=== PATIENT | female | born 1980 | race Caucasian/White ===

== ENCOUNTER 2018-06-27 07:34 | Emergency (ER) | payer OTHER ==
[2018-06-27 07:56] VITALS: O2SAT 98
[2018-06-27] MEDS ORDERED: TORAdol 30 mg Injection IM ONE (08:05)
[2018-06-27] MEDS ORDERED: TORAdol 30 mg Injection ONE (08:08)
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
[2018-06-27 10:53] VITALS: BP 122/50; PULSE 58
== END 2018-06-27 10:52 | disposition home or self-care (01) ==
LOC: ED 07:34
DX: M54.5 Low back pain (principal); M53.3 Sacrococcygeal disorders, not elsewhere classified; V43.53XA Car driver injured in collision with pick-up truck in traffic accident, initial encounter; Y92.410 Unspecified street and highway as the place of occurrence of the external cause
CPT/HCPCS: 72110; 96372; 99285; J1885

== ENCOUNTER 2019-04-13 11:57 | Emergency (ER) | payer OTHER ==
[2019-04-13] MEDS ORDERED: Sodium Chloride 0.9% 1000 ML 1,000 ML IV STA (12:25)
[2019-04-13] MEDS ORDERED: Sodium Chloride 0.9% 1000 ML 1,000 ML ONE (12:28)
--- NOTE | 2019-04-13 12:28 | ERPHSYRPT ---
- History of Present Illness Time Seen by Provider: 04/13/19 12:12 Patient Subjective Stated Complaint: pt here for lower abd pain, nausea since 1700, also painflu urination, she thinks it has do with her IUD that is to come out this month, she started Tamiflu yesterday before pain started Triage Nursing Assessment: pt alert, resp easy, skin w/d/p, moves all ext well, abd soft Physician History: 38 years old female presented in the ER with chief complaint of lower abdominal pain more in the suprapubic and right lower quadrant area gradual onset since yesterday evening, aggravated with movements and palpation and no significant relieving factors associated with nausea but no vomiting. Patient also started prophylactic Tamiflu yesterday and is concerned about her IUD dislodgment. She is also complaining of increased burning urination with mild increased frequency but no hematuria. She did have some spotting few days ago which is improved now. Denies any fever or chills. Timing/Duration: yesterday, gradual onset, worse Activities at Onset: rest Quality: dullness, sharpness Abdominal Pain Onset Location: RLQ, suprapubic Pain Radiation: no radiation Severity of Pain-Max: mild Severity of Pain-Current: moderate Modifying Factors: Improves With: movement Associated Symptoms: nausea Previous symptoms: no prior history Allergies/Adverse Reactions: No Known Drug Allergies Allergy (Verified 04/13/19 12:02) Home Medications: Fluoxetine HCl 20 mg [Prozac 20 MG] 40 mg DAILY 04/13/19 [History] Oseltamivir 75 mg [Tamiflu 75MG Capsule] 75 mg DAILY 04/13/19 [History] Trazodone HCl [Desyrel] 100 mg DAILY 04/13/19 [History] Hx Tetanus, Diphtheria Vaccination/Date Given: No Hx Influenza Vaccination/Date Given: No Hx Pneumococcal Vaccination/Date Given: No Immunizations Up to Date: Yes - Review of Systems Constitutional: No Symptoms Eyes: No Symptoms Ears, Nose, & Throat: No Symptoms Respiratory: No Symptoms Cardiac: No Symptoms Abdominal/Gastrointestinal: Abdominal Pain Genitourinary Symptoms: Dysuria, Frequency Musculoskeletal: No Symptoms Skin: No Symptoms Neurological: No Symptoms Psychological: No Symptoms Endocrine: No Symptoms Hematologic/Lymphatic: No Symptoms Immunological/Allergic: No Symptoms - Past Medical History Pertinent Past Medical History: Yes Neurological History: No Pertinent History ENT History: Other Cardiac History: No Pertinent History Respiratory History: Asthma, Bronchitis Endocrine Medical History: No Pertinent History Musculoskeletal History: No Pertinent History GI Medical History: GERD History: No Pertinent History Psycho-Social History: Depression Female Reproductive Disorders: No Pertinent History - Past Surgical History Past Surgical History: Yes Musculoskeletal: Orthopedic Surgery Other Surgical History: right wrist, femur - Social History Smoking Status: Current every day smoker Exposure to second hand smoke: Yes Drug Use: none Patient Lives Alone: No - Female History Hx Last Menstrual Period: unsure Hx Now: No - Nursing Vital Signs Nursing Vital Signs: Initial Vital Signs Pulse Rate 89 04/13/19 12:09 Respiratory Rate 16 04/13/19 12:09 Blood Pressure 137/76 04/13/19 12:09 O2 Sat by Pulse Oximetry 97 04/13/19 12:09 Pain Scale Pain Intensity 2 - Physical Exam General Appearance: no apparent distress Eye Exam: eyes nml inspection Ears, Nose, Throat Exam: normal ENT inspection Neck Exam: normal inspection Respiratory Exam: normal breath sounds, lungs clear Cardiovascular Exam: regular rate/rhythm, normal heart sounds Gastrointestinal/Abdomen Exam: soft, tenderness (Suprapubic and right lower quadrant) Extremity Exam: normal inspection Neurologic Exam: alert, oriented x 3 Skin Exam: normal color, warm SpO2 Interpretation: normal SpO2: 97 O2 Delivery: Room Air - Course Nursing assessment & vital signs reviewed: Yes Ordered Tests: Medication Summary Discontinued Medications Generic Name Dose Route Start Last Admin Trade Name Freq PRN Reason Stop Dose Admin Sodium Chloride 1,000 mls @ 999 mls/hr 04/13/19 12:25 04/13/19 13:28 Sodium Chloride 0.9% 1000 Ml IV 04/13/19 13:25 Infused .Q1H1M STA Infusion Sodium Chloride Confirm 04/13/19 12:28 Sodium Chloride 0.9% 1000 Ml Administered 04/13/19 12:29 Dose 1,000 mls @ ud .ROUTE .STK-MED ONE Ketorolac Tromethamine 30 mg 04/13/19 12:32 04/13/19 12:34 Toradol 30 Mg Injection IV 04/13/19 12:33 30 mg STAT ONE Administration Ketorolac Tromethamine Confirm 04/13/19 12:34 Toradol 30 Mg Injection Administered 04/13/19 12:35 Dose 30 mg .ROUTE .STK-MED ONE Lab/Rad Data: Laboratory Result Diagrams 04/13/19 12:30 04/13/19 12:30 Laboratory Results 04/13/19 04/13/19 04/13/19 Range/Units 14:16 12:30 12:30 WBC (4.0-10.5) K/mm3 RBC (4.1-5.4) M/mm3 Hgb (12.0-16.0) gm/dl Hct (35-47) % MCV (78-100) fl MCH (26-32) pg MCHC (32-36) g/dl RDW (11.5-14.0) % Plt Count (150-450) K/mm3 MPV (7.5-11.0) fl Gran % (36.0-66.0) % Eos # (Auto) (0-0.5) Absolute Lymphs (auto) (1.0-4.6) Absolute Monos (auto) (0.0-1.3) Lymphocytes % (24.0-44.0) % Monocytes % (0.0-12.0) % Eosinophils % (0.00-5.0) % Basophils % (0.0-0.4) % Absolute Granulocytes (1.4-6.9) Basophils # (0-0.4) Sodium 137 (137-145) mmol/L Potassium 4.1 (3.5-5.1) mmol/L Chloride 103 (98-107) mmol/L Carbon Dioxide 25 (22-30) mmol/L Anion Gap 13.6 (5-15) MEQ/L BUN 9 (7-17) mg/dL Creatinine 0.68 (0.52-1.04) mg/dL Estimated GFR > 60.0 ML/MIN Glucose 98 (74-106) mg/dL Calcium 9.7 (8.4-10.2) mg/dL Total Bilirubin 1.00 (0.2-1.3) mg/dL AST 62 H (14-36) U/L ALT 59 H (0-35) U/L Alkaline Phosphatase 91 (38-126) U/L Serum Total Protein 7.8 (6.3-8.2) g/dL Albumin 4.6 (3.5-5.0) g/dL Lipase 122 (23-300) U/L Urine Color YELLOW (YELLOW) Urine Appearance CLEAR (CLEAR) Urine pH 6.0 (5-6) Ur Specific [place] 1.010 (1.005-1.025) Urine Protein NEGATIVE (Negative) Urine Ketones TRACE (NEGATIVE) Urine Blood NEGATIVE (0-5) Julius/ul Urine Nitrite NEGATIVE (NEGATIVE) Urine Bilirubin NEGATIVE (NEGATIVE) Urine Urobilinogen NEGATIVE (0-1) mg/dL Ur Leukocyte Esterase NEGATIVE (NEGATIVE) Urine WBC (Auto) NONE (0-5) /HPF Urine RBC (Auto) NONE (0-2) /HPF U Epithel Cells (Auto) NONE (FEW) /HPF Urine Bacteria (Auto) NONE (NEGATIVE) /HPF Urine Culture Reflexed NO (NO) Urine Glucose NEGATIVE (NEGATIVE) mg/dL Urine HCG, Qual NEGATIVE (Negative) 04/13/19 Range/Units 12:30 WBC 12.5 H (4.0-10.5) K/mm3 RBC 4.24 (4.1-5.4) M/mm3 Hgb 12.7 (12.0-16.0) gm/dl Hct 38.3 (35-47) % MCV 90.3 (78-100) fl MCH 30.0 (26-32) pg MCHC 33.2 (32-36) g/dl RDW 12.3 (11.5-14.0) % Plt Count 232 (150-450) K/mm3 MPV 11.2 H (7.5-11.0) fl Gran % 79.6 H (36.0-66.0) % Eos # (Auto) 0.01 (0-0.5) Absolute Lymphs (auto) 1.57 (1.0-4.6) Absolute Monos (auto) 0.94 (0.0-1.3) Lymphocytes % 12.6 L (24.0-44.0) % Monocytes % 7.5 (0.0-12.0) % Eosinophils % 0.1 (0.00-5.0) % Basophils % 0.2 (0.0-0.4) % Absolute Granulocytes 9.93 H (1.4-6.9) Basophils # 0.03 (0-0.4) Sodium (137-145) mmol/L Potassium (3.5-5.1) mmol/L Chloride (98-107) mmol/L Carbon Dioxide (22-30) mmol/L Anion Gap (5-15) MEQ/L BUN (7-17) mg/dL Creatinine (0.52-1.04) mg/dL Estimated GFR ML/MIN Glucose (74-106) mg/dL Calcium (8.4-10.2) mg/dL Total Bilirubin (0.2-1.3) mg/dL AST (14-36) U/L ALT (0-35) U/L Alkaline Phosphatase (38-126) U/L Serum Total Protein (6.3-8.2) g/dL Albumin (3.5-5.0) g/dL Lipase (23-300) U/L Urine Color (YELLOW) Urine Appearance (CLEAR) Urine pH (5-6) Ur Specific [place] (1.005-1.025) Urine Protein (Negative) Urine Ketones (NEGATIVE) Urine Blood (0-5) Julius/ul Urine Nitrite (NEGATIVE) Urine Bilirubin (NEGATIVE) Urine Urobilinogen (0-1) mg/dL Ur Leukocyte Esterase (NEGATIVE) Urine WBC (Auto) (0-5) /HPF Urine RBC (Auto) (0-2) /HPF U Epithel Cells (Auto) (FEW) /HPF Urine Bacteria (Auto) (NEGATIVE) /HPF Urine Culture Reflexed (NO) Urine Glucose (NEGATIVE) mg/dL Urine HCG, Qual (Negative) - Progress Progress: improved, re-examined Counseled pt/family regarding: lab results, diagnosis, need for follow-up, rad results - Departure Departure Disposition: Home Clinical Impression: Ovarian cyst rupture, Lower abdominal pain Condition: Stable Critical Care Time: No Referrals: LULU PLATA [Primary Care Provider] - Follow Up with PCP (follow up for re evaluation in 1-day) Instructions: Acute Abdomen (Belly Pain), Adult (DC) Additional Instructions: Take Tylenol/ibuprofen as needed. Follow-up with primary care and your [employer] for reevaluation in the morning. Return to ER for worsening pain, vomiting, fever chills etc. Prescriptions: Ibuprofen 600 mg PO Q6HPRN PRN 10 Days #20 tablet PRN Reason: Pain
[2019-04-13] MEDS ORDERED: TORAdol 30 mg Injection IV ONE (12:32)
[2019-04-13] MEDS ORDERED: TORAdol 30 mg Injection ONE (12:34)
[2019-04-13 12:47] LABS: Absolute Neutrophil Ct (ANC) 9.93 (1.4-6.9); BASOPHIL % 0.2 % (0.0-0.4); Basophil (Absolute #) 0.03 (0-0.4); Eosinophil % 0.1 % (0.00-5.0); Eosinophil (Absolute #) 0.01 (0-0.5); Hematocrit 38.3 % (35-47); Hemoglobin 12.7 gm/dl (12.0-16.0); Lymphocyte (Absolute #) 1.57 (1.0-4.6); Lymphocytes % 12.6 % (24.0-44.0); Mean Cell Volume 90.3 fl (78-100); Mean Corpuscular Hgb Concent. 33.2 g/dl (32-36); Mean Platelet Volume 11.2 fl (7.5-11.0); Monocyte (Absolute #) 0.94 (0.0-1.3); Monocytes % 7.5 % (0.0-12.0); Neutrophil % 79.6 % (36.0-66.0); Platelet Count 232 K/mm3 (150-450); Red Blood Count 4.24 M/mm3 (4.1-5.4); Red Cell Distribution Width 12.3 % (11.5-14.0); White Blood Count 12.5 K/mm3 (4.0-10.5)
[2019-04-13 12:54] LABS: ALBUMIN 4.6 g/dL (3.5-5.0); ALKALINE PHOSPHATASE 91 U/L (38-126); ANION GAP 13.6 MEQ/L (5-15); BLOOD UREA NITROGEN 9 mg/dL (7-17); CHLORIDE 103 mmol/L (98-107); Calcium 9.7 mg/dL (8.4-10.2); Carbon Dioxide 25 mmol/L (22-30); Creatinine 1 0.68 mg/dL (0.52-1.04); Glucose 98 mg/dL (74-106); LIPASE 122 U/L (23-300); Potassium 4.1 mmol/L (3.5-5.1); SGOT/AST 62 U/L (14-36); SGPT/ALT 59 U/L (0-35); SODIUM 137 mmol/L (137-145); Total Protein 7.8 g/dL (6.3-8.2)
--- NOTE | 2019-04-13 14:13 | XRAY ---
Exam: CT of the abdomen and pelvis with IV contrast from 04/13/2019. Total DLP: 638.78 mGy-cm. Comparison: None. Indication: 38-year-old female with pelvic pain, possibly dislodged IUD or appendicitis. Technique: Post-IV contrast axial images were obtained through the abdomen and pelvis during and following automated injection of 80 cc of Isovue-370 contrast material. No oral contrast was given for this exam. Reconstructed coronal and sagittal images were created and reviewed. Findings: The visualized lung bases appear clear. The liver, spleen, pancreas, and adrenal glands appear unremarkable. The gallbladder is distended and reveals no dense calcifications within it. No biliary duct distention is seen. The kidneys appear of unremarkable size and shape. Both kidneys function. 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 No renal mass or hydronephrosis is seen. Mild atherosclerotic vascular calcification is seen within the abdominal aorta. No abdominal aortic aneurysm or abnormal retroperitoneal lymphadenopathy is seen. There is no free intraperitoneal air. There is minimal protrusion of intraperitoneal fat into the subcutaneous fat at the level of the umbilicus on sagittal image #87. Otherwise, the anterior abdominal wall appears intact. Mild scattered colonic fecal retention is seen. The bowel appears nonobstructed. I believe I can see a portion of the aerated appendix. No definite abnormality is seen to suggest appendicitis. The uterus is anteflexed and contains an unremarkable positioned IUD within it. I believe there is a small amount of free intraperitoneal fluid within the lower posterior pelvis. The pelvic adnexa appear unremarkable. Consider a ruptured ovarian cyst or dominant follicle. Numerous calcified phleboliths are seen within the lower pelvis. The inguinal regions appear unremarkable. The skeleton reveals no acute fracture or aggressive bone lesion. Bilateral spondylolysis is seen at L5 without any evidence of significant spondylolisthesis. Small anterior lower thoracic spurs are seen on the sagittal images. Impression: 1. An IUD is seen within the upper uterine segment in unremarkable position. The uterus is anteflexed. 2. There appears to be a small amount of free intraperitoneal fluid within the lower posterior pelvis. Consider a ruptured ovarian cyst or dominant follicle. 3. A portion of the aerated appendix can be identified and appears grossly unremarkable. Assessment is mildly limited because no oral contrast was given. 4. 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 5. Bilateral spondylolysis of L5 without evidence of significant spondylolisthesis at L5-S1. 6. No other acute process is seen within the abdomen or pelvis.
[2019-04-13 14:26] LABS: Appearance CLEAR (CLEAR); Bilirubin NEGATIVE (NEGATIVE); Blood NEGATIVE Ery/ul (0-5); Glucose NEGATIVE (NEGATIVE); Ketones TRACE (NEGATIVE); Leukocyte Esterase NEGATIVE (NEGATIVE); Nitrite NEGATIVE (NEGATIVE); Protein,Urine Dip NEGATIVE (Negative); Urobilinogen NEGATIVE mg/dL (0-1)
[2019-04-13 14:34] VITALS: O2SAT 97
[2019-04-13 14:50] VITALS: BP 122/76; PULSE 72
== END 2019-04-13 14:54 | disposition home or self-care (01) ==
LOC: ED 11:57
DX: N83.209 Unspecified ovarian cyst, unspecified side (principal); R10.30 Lower abdominal pain, unspecified
CPT/HCPCS: 36000; 36415; 74177; 80053; 81001; 83690; 84703; 85025; 96360; 96374; 99284; J1885

== ENCOUNTER 2021-01-20 12:54 | Day surgery (SDC) | payer OTHER ==
--- NOTE | 2021-01-20 10:34 | HP ---
DATE OF SURGERY: 01/20/2021 HISTORY OF PRESENT ILLNESS: The patient is a 40-year-old with subcutaneous nodule with increasing aches, increased pain and pressure. Question whether she has lipoma, fibroma or other etiology versus fat necrosis. She had been offered excision. She may need a biopsy for etiology. She is need of needle biopsy per the radiologist at the time of excision. PAST MEDICAL HISTORY: Reflux. Asthma. Anxiety. Diabetes mellitus. PAST SURGICAL HISTORY: The patient denied any prior surgery in this area. MEDICATIONS: Omeprazole. Prozac. PRN inhalers. ALLERGIES: NKDA. FAMILY HISTORY: Negative in regards to this problem. SOCIAL HISTORY: Quarter pack per day smoker. Drinks alcohol on the weekend, denies abuse. REVIEW OF SYSTEMS: Fourteen systems reviewed per admission assessment. No chest pain or palpitations. Other systems negative or noncontributory as above and per preadmission questionnaire. PHYSICAL EXAMINATION: GENERAL: No acute distress. HEENT: Sclerae nonicteric. NECK: No JVD. CHEST: Equal excursion, nonlabored breathing. CVS: Regular rate and rhythm. ABDOMEN: Soft. Left lateral abdomen density question whether lipoma, fibroma versus some fat necrosis or other etiology. I feel patient will benefit from excision and biopsy. Concerned about the area causing increased pain. EXTREMITIES: No significant edema. NEURO: Alert, oriented, moving extremities symmetrically. PSYCH: Appropriate mood and affect. IMPRESSION: Will proceed with excision of left lateral abdomen subcutaneous mass as an outpatient.
[~2021-01-20 12:54] MED LIST: XYLOCAINE 1% HCL 20 ML MDV ONE
[2021-01-20] MEDS ORDERED: Lactated Ringers 1,000 ML IV ONE ×2 (13:10→15:23)
[2021-01-20] MEDS ORDERED: Lactated Ringers 1,000 ML IV SCH (13:30)
[2021-01-20] MEDS ORDERED: Xylocaine-Mpf 2% 5 Ml Vial ONE (15:01)
[2021-01-20] MEDS ORDERED: Decadron 4 MG INJ ONE (15:01)
[2021-01-20] MEDS ORDERED: DIPRIVAN 200 MG/20 ML IV ONE (15:01)
[2021-01-20] MEDS ORDERED: Zofran 4 MG/2 ML VIAL ONE ×2 (15:01→16:21)
[2021-01-20] MEDS ORDERED: Versed 2 MG/2 ML Injection ONE (15:02)
[2021-01-20] MEDS ORDERED: TORAdol 30 mg Injection ONE (15:02)
[2021-01-20] MEDS ORDERED: SUBLIMAZE 100 MCG/2 ML ONE (15:02)
[2021-01-20] MEDS ORDERED: KEFZOL 1 GM ONE (15:37)
[2021-01-20] MEDS ORDERED: MORPHINE SULFATE 2 MG INJ ONE (16:10)
[2021-01-20 17:15] VITALS: BP 127/90; PULSE 82; O2SAT 97
--- NOTE | 2021-01-21 11:02 | OP ---
SURGERY DATE/TIME: 01/20/2021 1526 PREOPERATIVE DIAGNOSIS: Painful, symptomatic persistent left abdomen/flank density. POSTOPERATIVE DIAGNOSIS: Painful, symptomatic persistent left abdomen/flank density, path pending. PROCEDURE: Excisional biopsy of subcutaneous mass or density left abdomen/flank (approximately 3 cm with margins) with intermediate closure. SURGEON: Dr. Sean Vergara. BUMBOATER: Dereck Centeno, Medical Student III. ANESTHESIA: General. ESTIMATED BLOOD LOSS: Minimal. INDICATIONS: As noted above. Risks and benefits explained in detail and not limited to and consent obtained. The site had been marked in the preoperative holding area. DESCRIPTION OF PROCEDURE AND FINDINGS: The patient is taken to the operating room. General anesthesia induced. Abdomen and flank were prepped and draped in usual sterile fashion. The patient bumped up a little bit. After official time out, prepping and draping in usual sterile fashion, incision made over the top. Dissection carried over the top of the area. Dissecting down through tissue circumferentially around this denser tissue down to more normal appearing fascia underneath. It is unclear this firmer density whether it is an area of lipoma with some necrosis or changes in subcutaneous vein, either way path pending. The area in question where this margin measured about 3 cm and passed off with the more central denser area around the surrounding tissue with normal subcutaneous fat. The wound irrigated out. Good hemostasis noted. Jan closed with 3-0 Vicryl. Superficial subcu closed with 3-0 Vicryl. Skin closed with 4-0 Vicryl. Steri-Strips and sterile dressing applied. 0.25% Marcaine local injected along the skin incision fascial defect. The patient tolerated the procedure well. There were no immediate complications. Findings discussed with the family out in the waiting area. She was transferred to the recovery room in stable condition.
== END 2021-01-20 17:25 | disposition home or self-care (01) ==
LOC: SDC 12:54
PROVIDERS: ATTEND Surgery
DX: L92.8 Other granulomatous disorders of the skin and subcutaneous tissue (principal)
CPT/HCPCS: 84703; 88307; J0690; J1100; J1885; J2250; J2270; J2405; J2704; J3010

== ENCOUNTER 2021-03-07 14:53 | Emergency (ER) | payer OTHER ==
[2021-03-07] MEDS ORDERED: Sodium Chloride 0.9% 1000 ML 1,000 ML IV SCH (15:30)
[2021-03-07 15:33] LABS: Absolute Neutrophil Ct (ANC) 5.37 (1.4-6.9); Basophil (Absolute #) 0.04 (0-0.4); Eosinophil % 0.5 % (0.00-5.0); Eosinophil (Absolute #) 0.04 (0-0.5); Hematocrit 37.8 % (35-47); Hemoglobin 12.6 gm/dl (12.0-16.0); Lymphocyte (Absolute #) 2.12 (1.0-4.6); Lymphocytes % 25.4 % (24.0-44.0); Mean Cell Volume 90.6 fl (78-100); Mean Corpuscular Hemoglobin 30.2 pg (26-32); Mean Corpuscular Hgb Concent. 33.3 g/dl (32-36); Mean Platelet Volume 10.5 fl (7.5-11.0); Monocyte (Absolute #) 0.79 (0.0-1.3); Monocytes % 9.4 % (0.0-12.0); Neutrophil % 64.2 % (36.0-66.0); Platelet Count 257 K/mm3 (150-450); Red Blood Count 4.17 M/mm3 (4.1-5.4); Red Cell Distribution Width 12.3 % (11.5-14.0); White Blood Count 8.4 K/mm3 (4.0-10.5)
[2021-03-07] MEDS ORDERED: Sodium Chloride 0.9% 1000 ML 1,000 ML ONE (15:36)
--- NOTE | 2021-03-07 15:55 | XRAY ---
Indication: Chest pain. Comparison: October 24, 2020. Portable chest demonstrates normal heart, lungs, and bony thorax again with incidental left mid lung calcified granuloma.
--- NOTE | 2021-03-07 17:09 | ERPHSYRPT ---
- History of Present Illness Time Seen by Provider: 03/07/21 15:05 Historian: patient Exam Limitations: no limitations Patient Subjective Stated Complaint: pt here for pain under left breast for 3 days, pain is comes and goes, worse with movement Triage Nursing Assessment: pt alert, resp easy, face mask in place. skin w/d/p. no edema noted Physician History: Patient is a 40-year-old white female who presents with complaint of chest pain which is located on the lateral left chest just along the lower border of the br east. She describes it as a soreness it is tender to light touch or even stroking the skin. That she has noted no rash. Risk factors include smoking family history and is negative for hypertension cholesterol or diabetes. Timing/Duration: day(s) (3) Activities at Onset: none Quality: aching Location: other (Left lateral chest wall and along the lower margin of the breast) Chest Pain Radiation: no radiation Severity of Pain-Max: moderate Severity of Pain-Current: moderate Modifying Factors: Improves With: nothing Associated Symptoms: denies symptoms Prior Chest Pain/Cardiac Workup: no prior chest pain Nitro Today/Relief: no nitro taken today Aspirin Treatment Today: no aspirin today Allergies/Adverse Reactions: No Known Drug Allergies Allergy (Verified 01/20/21 13:10) Home Medications: Fluoxetine HCl 20 mg [Prozac 20 MG] 40 mg DAILY 04/13/19 [History] Omeprazole 40 mg PO DAILY 01/14/21 [History] Loratadine [Claritin] 10 mg PO DAILY 01/20/21 [History] Hx Tetanus, Diphtheria Vaccination/Date Given: No Hx Influenza Vaccination/Date Given: No Hx Pneumococcal Vaccination/Date Given: No Immunizations Up to Date: Yes Travel Risk - International Travel Have you traveled outside of the country in past 3 weeks: No - Coronavirus Screening Are you exhibiting any of the following symptoms?: Yes Symptoms: Cough: New Onset Close contact with a COVID-19 positive Pt in past 14-21 Days: No - Vaccine Status Have you recieved a Covid-19 vaccination: No - Review of Systems Constitutional: No Fever, No Chills Eyes: No Symptoms Ears, Nose, & Throat: No Symptoms Respiratory: No Cough, No Dyspnea Cardiac: Chest Pain, No Edema, No Syncope Abdominal/Gastrointestinal: No Abdominal Pain, No Nausea, No Vomiting, No Diarrhea Genitourinary Symptoms: No Dysuria Musculoskeletal: No Back Pain, No Neck Pain Skin: No Rash Neurological: No Dizziness, No Focal Weakness, No Sensory Changes Psychological: No Symptoms Endocrine: No Symptoms All Other Systems: Reviewed and Negative - Past Medical History Pertinent Past Medical History: Yes Neurological History: No Pertinent History ENT History: Other Cardiac History: No Pertinent History Respiratory History: Asthma, Bronchitis Endocrine Medical History: No Pertinent History Musculoskeletal History: No Pertinent History GI Medical History: GERD History: No Pertinent History Psycho-Social History: Depression Female Reproductive Disorders: No Pertinent History - Past Surgical History Past Surgical History: Yes Neuro Surgical History: No Pertinent History Cardiac: No Pertinent History Respiratory: No Pertinent History Gastrointestinal: No Pertinent History Genitourinary: No Pertinent History Musculoskeletal: Orthopedic Surgery Female Surgical History: No Pertinent History Other Surgical History: right wrist, femur - Social History Smoking Status: Current every day smoker Exposure to second hand smoke: Yes Drug Use: marijuana Patient Lives Alone: No - Female History Hx Last Menstrual Period: 2 days ago Hx Now: No - Nursing Vital Signs Nursing Vital Signs: Initial Vital Signs Temperature 97.3 F 03/07/21 14:55 Pulse Rate 92 H 03/07/21 14:55 Respiratory Rate 16 03/07/21 14:55 Blood Pressure 123/79 03/07/21 14:55 O2 Sat by Pulse Oximetry 99 03/07/21 14:55 Pain Scale Pain Intensity 6 - Physical Exam General Appearance: mild distress Eye Exam: PERRL/EOMI, eyes nml inspection Ears, Nose, Throat Exam: normal ENT inspection, moist mucous membranes Neck Exam: normal inspection, non-tender, supple, full range of motion Respiratory Exam: normal breath sounds, lungs clear, No respiratory distress Cardiovascular Exam: regular rate/rhythm, normal heart sounds Gastrointestinal/Abdomen Exam: soft, No tenderness, No mass Back Exam: normal inspection, No CVA tenderness, No vertebral tenderness Extremity Exam: normal inspection, normal range of motion Neurologic Exam: alert, oriented x 3, cooperative, normal mood/affect, sensation nml, No motor deficits Skin Exam: normal color, warm, dry, other (Tenderness along the left lateral chest just at the lower margin of the left breast to even light touch.) SpO2: 96 - Course Nursing assessment & vital signs reviewed: Yes EKG Interpreted by Me: RATE (81), Sinus Rhythm, NORMAL AXIS, NORMAL INTERVALS, NORMAL QRS, NORMAL ST-T - Radiology Exams Chest X-ray Interpretation: Negative Ordered Tests: Active Orders 24 hr Category Date Time Status CHEST 1 VIEW (PORTABLE) Stat Exams 03/07/21 Completed CBC W DIFF Stat Lab 03/07/21 15:20 Completed CMP Stat Lab 03/07/21 15:20 Received D-DIMER QUANTITATIVE Stat Lab 03/07/21 15:20 Completed Lactic Acid Stat Lab 03/07/21 15:30 Completed NT PRO BNP Stat Lab 03/07/21 15:20 Received TROPONIN Q3H Lab 03/07/21 18:30 Ordered TROPONIN Q3H Lab 03/07/21 21:30 Ordered TROPONIN Q3H Lab 03/08/21 00:30 Ordered TROPONIN Q3H Lab 03/08/21 03:30 Ordered TROPONIN Stat Lab 03/07/21 15:20 Received Medication Summary Generic Name Dose Route Start Last Admin Trade Name Freq PRN Reason Stop Dose Admin Sodium Chloride 1,000 mls @ 100 mls/hr 03/07/21 15:30 03/07/21 15:40 Sodium Chloride 0.9% 1000 Ml IV 04/06/21 15:29 100 mls/hr .Q10H ALPHONSE Administration Lab/Rad Data: Laboratory Result Diagrams 03/07/21 15:20 Laboratory Results 03/07/21 03/07/21 03/07/21 Range/Units 15:30 15:20 15:20 WBC 8.4 (4.0-10.5) K/mm3 RBC 4.17 (4.1-5.4) M/mm3 Hgb 12.6 (12.0-16.0) gm/dl Hct 37.8 (35-47) % MCV 90.6 (78-100) fl MCH 30.2 (26-32) pg MCHC 33.3 (32-36) g/dl RDW 12.3 (11.5-14.0) % Plt Count 257 (150-450) K/mm3 MPV 10.5 (7.5-11.0) fl Gran % 64.2 (36.0-66.0) % Eos # (Auto) 0.04 (0-0.5) Absolute Lymphs (auto) 2.12 (1.0-4.6) Absolute Monos (auto) 0.79 (0.0-1.3) Lymphocytes % 25.4 (24.0-44.0) % Monocytes % 9.4 (0.0-12.0) % Eosinophils % 0.5 (0.00-5.0) % Basophils % 0.5 (0.0-0.4) % Absolute Granulocytes 5.37 (1.4-6.9) Basophils # 0.04 (0-0.4) D-Dimer < 215 L (215-500) ng/mL Lactic Acid 0.7 (0.4-2.0) - Progress Progress: unchanged Air Movement: good Blood Culture(s) Obtained: No Antibiotics given: No - Departure Departure Disposition: Home Clinical Impression: Chest wall pain Condition: Stable Critical Care Time: No Referrals: LULU PLATA MD [Primary Care Provider] - Follow up/PCP as directed Instructions: Chest Pain (DC)
[2021-03-07 17:19] VITALS: BP 110/70; PULSE 77; O2SAT 98
[2021-03-07 20:48] LABS: TROPONIN < 0.012 ng/mL (0.000-0.034)
== END 2021-03-07 17:19 | disposition home or self-care (01) ==
LOC: ED 14:53
DX: R07.89 Other chest pain (principal); Z72.0 Tobacco use
CPT/HCPCS: 36415; 71045; 80053; 83605; 83880; 84484; 85025; 85379; 96360; 99284

== ENCOUNTER 2024-11-02 05:54 | Day surgery (SDC) | payer OTHER ==
[2024-11-02 06:17] LABS: HCG URINE TEST NEGATIVE (NEGATIVE)
[2024-11-02] MEDS ORDERED: Lactated Ringers 1,000 ML IV ONE (06:18)
[2024-11-02] MEDS: Lactated Ringers 1,000 ML IV SCH (06:23)
[2024-11-02 06:44] LABS: Calcium 9.1 mg/dL (8.4-10.2); Carbon Dioxide 20.0 mmol/L (22-30); Creatinine 1 0.81 mg/dL (0.52-1.04); EST GLOMERULAR FILTRATION RATE 92.3 ML/MIN; Glucose 91.0 mg/dL (74-106); Potassium 3.6 mmol/L (3.5-5.1)
[2024-11-02] MEDS ORDERED: Versed 2 MG/2 ML Injection ONE (08:02)
[2024-11-02] MEDS ORDERED: Xylocaine-Mpf 2% 5 Ml Vial ONE (08:03)
[2024-11-02] MEDS ORDERED: propofoL IV ONE ×2 (08:03→08:13)
[2024-11-02] MEDS ORDERED: SUBLIMAZE 100 MCG/2 ML ONE (08:10)
[2024-11-02 08:52] VITALS: RESP 16; TEMP 97.2
[2024-11-02 09:04] VITALS: BP 119/81; PULSE 82; O2SAT 98
--- NOTE | 2024-11-02 16:05 | OP ---
SURGERY DATE/TIME: 11/02/2024 [id number] PREOPERATIVE DIAGNOSIS: Change in bowel habits. POSTOPERATIVE DIAGNOSIS: Normal colon. PROCEDURE PERFORMED: Diagnostic colonoscopy. SURGEON: Dougie Berry MD. ANESTHESIA: MAC by Gonzalez Huerta CRNA. ESTIMATED BLOOD LOSS: None. SPECIMEN: None. DESCRIPTION OF PROCEDURE AND FINDINGS: After informed written consent was obtained, the patient was taken to the endoscopy suite. She was placed in the left lateral decubitus position and anesthesia was titrated to desired level of consciousness. Digital rectal exam showed normal sphincter tone and no internal lesions. The scope was inserted into the rectum and sequentially, the entire colonic mucosa was traversed. Level of the cecum was reached and verified with direct visualization of the ileocecal valve. Upon withdrawal, careful mucosal inspection revealed normal mucosal structures, no lesions or defects, or suspicious areas were identified. Prior to withdrawal, retroflexion showed no internal lesions. The scope was removed and the patient was transferred to the recovery room in good condition.
== END 2024-11-02 09:10 | disposition home or self-care (01) ==
LOC: SDC 05:54
PROVIDERS: ATTEND Family Medicine
DX: R19.4 Change in bowel habit (principal); K21.9 Gastro-esophageal reflux disease without esophagitis; Z79.899 Other long term (current) drug therapy